=== PATIENT | female | born 1930 | race Asian ===

== ENCOUNTER 2018-04-27 22:33 | Inpatient (IN) | payer OTHER ==
[~2018-04-27] VITALS: Ht 157.5 cm; Wt 49.9 kg
[~2018-04-27 22:33] MED LIST: ASPI-1159 PO; CARV25TA47 PO; CHOL400T15 MT; FURO20TA4 PO; GLIP5TAB12 PO; ISOS40TA17 PO; LISI40TA4 PO; MAGN400C PO; OMEG1CAP17 PO; PRAV20TA57 PO; UBID100C45 PO
[2018-04-27] MEDS ORDERED: MECLIZINE 25MG TABLET PO ONE (23:15)
[2018-04-27] MEDS ORDERED: SODIUM CHLORIDE 0.9% 1000ML BAG (SEPSIS BOLUS) IV ONE (23:15)
[2018-04-28] MEDS ORDERED: CLONIDINE 0.1MG TABLET PO ONE
[2018-04-28 00:43] LABS: CLARITY URINE CLEAR (CLEAR); COLOR URINE YELLOW (YELLOW); KETONES URINE NEGATIVE (NEGATIVE); LEUKOCYTE ESTERASE URINE TRACE (NEGATIVE); NITRITE URINE NEGATIVE (NEGATIVE); OCCULT BLOOD URINE NEGATIVE (NEGATIVE); PH URINE 7.5 (4.5-8.0); PROTEIN URINE NEGATIVE (NEGATIVE); SPECIFIC GRAVITY URINE 1.014 (1.005-1.030); UROBILINOGEN URINE 0.2 E.U./dL (0.2-1.0)
[2018-04-28] MEDS ORDERED: LEVOFLOXACIN 750MG PREMIX 150 ML IV ONE (00:45)
[2018-04-28 00:50] LABS: BASOPHILS % 0.8 % (0.0-2.0); EOSINOPHILS % 1.3 % (0.0-5.0); HEMATOCRIT. 40.6 % (36.0-48.0); HEMOGLOBIN. 13.5 g/dL (12.0-16.0); LYMPHOCYTES % 23.5 % (20.0-50.0); MEAN CORPUSCULAR VOLUME 90.2 fL (81.0-99.0); MEAN PLATELET VOLUME 9.8 fl (7.4-10.4); MONOCYTES % 5.4 % (2.0-8.0); PLATELET 180 x1000/uL (130-400); RED CELL DISTRIBUTION WIDTH 14.1 % (11.6-14.6)
[2018-04-28 00:56] LABS: CHLORIDE 103 mEq/L (98-107)
[2018-04-28 00:57] LABS: PROTHROMBIN TIME 10.2 sec (9.1-11.1)
[2018-04-28] MEDS ORDERED: ONDANSETRON HCL 4MG/2ML INJ IV ONE ×2 (03:30)
[2018-04-28] MEDS ORDERED: ASPIRIN 325MG EC TABLET PO ONE (04:30)
[2018-04-28 08:40] VITALS: BP 176/57
[2018-04-28] MEDS ORDERED: DEXTROSE 50% WATER 50ML SYRINGE IV PRN (10:15)
[2018-04-28] MEDS ORDERED: IPRATROPIUM/ALBUTEROL 0.5-3(2.5)MG/3ML NEB HHN PRN (10:15)
[2018-04-28] MEDS ORDERED: CLONIDINE 0.1MG TABLET PO PRN (10:15)
[2018-04-28] MEDS ORDERED: HYDROCODONE/ACETAMINOPHEN 5/325MG TABLET PO PRN (10:30)
[2018-04-28] MEDS ORDERED: MECLIZINE 25MG TABLET PO PRN (10:30)
[2018-04-28] MEDS ORDERED: LEVOFLOXACIN 250MG TABLET PO SCH (11:00)
[2018-04-28] MEDS ORDERED: INSULIN LISPRO 100 UNITS/ML SUBCUT SCH (12:40)
[2018-04-28 12:54] LABS: HEMATOCRIT 34.8 % (36.0-48.0); HEMOGLOBIN 11.8 g/dL (12.0-16.0); MEAN CORPUSCULAR HEMOGLOBIN 30.1 pg (28.0-32.0); MEAN CORPUSCULAR VOLUME 89.2 fL (81.0-99.0); PLATELET 168 x1000/uL (130-400); RED CELL DISTRIBUTION WIDTH 14.3 % (11.6-14.6)
[2018-04-28] MEDS: ENOXAPARIN 40MG/0.4ML SYR SUBCUT SCH (12:55)
[2018-04-28] MEDS: HYDRALAZINE 20MG/ML VIAL IV PRN (12:56)
[2018-04-28 12:57] LABS: BG BASE EXCESS -0.7 mmol/L (-2.0-2.0); BG CARBOXYHEMOGLOBIN 0.8 % (0.5-1.5); BG DEOXYHEMOGLOBIN 10.8 % (0.0-5.0); BG FRACTION INSPIRED OXYGEN 21; BG HCO3 ACT 24.5 mmol/L (22.0-26.0); BG METHEMOGLOBIN 0.2 % (0.0-1.5); BG OXYGEN SATURATION 89.1 % (92.0-98.5); BG OXYHEMOGLOBIN 88.2 % (94.0-97.0); BG PCO2 42.5 mmHg (35.0-45.0); BG PH 7.378 (7.350-7.450); BG PO2 55.2 mmHg (75.0-100.0); BG SAMPLE SITE RIGHT RADIAL; BG TOTAL HEMOGLOBIN 12.4 g/dL (12.0-18.0); BG VENT MODE ROOM AIR
[2018-04-28] MEDS: BLOOD SUGAR DIAGNOSTIC STRIP TEST SCH ×3 (12:57→21:21)
[2018-04-28] MEDS: INSULIN LISPRO 100 UNITS/ML SUBCUT SCH ×3 (12:57→21:00)
[2018-04-28 13:18] LABS: CHLORIDE 106 mEq/L (98-107)
[2018-04-28 13:25] LABS: LDL CHOLESTEROL 118 mg/dL (5-100)
[2018-04-28 13:26] LABS: HDL CHOLESTEROL 43 mg/dL (40-59)
[2018-04-28 15:51] VITALS: BP 121/36
[2018-04-28 16:00] VITALS: BP_SYST 154; BP_SYST 168; BP_SYST 176; BP_DIAS 44; BP_DIAS 46; BP_DIAS 48
[2018-04-28] MEDS ORDERED: IOHEXOL-350 100 ML BOTTLE ONE (16:43)
[2018-04-28] MEDS: AMLODIPINE 5MG TABLET PO SCH (19:11)
[2018-04-28 20:00] VITALS: BP 157/46
[2018-04-28] MEDS: IPRATROPIUM/ALBUTEROL 0.5-3(2.5)MG/3ML NEB HHN SCH (20:20)
[2018-04-28 20:23] LABS: *AMPHETAMINES SCREEN URINE NEGATIVE (NEGATIVE); *BARBITURATES SCREEN URINE NEGATIVE (NEGATIVE); *BENZODIAZEPINES SCREEN URINE NEGATIVE (NEGATIVE); *COCAINE SCREEN URINE NEGATIVE (NEGATIVE)
[2018-04-28 20:24] LABS: CANNABINOID URINE SCREEN PRESUMTIVE POSITIVE (NEGATIVE); METHADONE URINE SCREEN NEGATIVE (NEGATIVE); OPIATES URINE SCREEN NEGATIVE (NEGATIVE); PHENCYCLIDINE URINE SCREEN NEGATIVE (NEGATIVE)
[2018-04-28] MEDS ORDERED: LEVOFLOXACIN 250MG PREMIX 50 ML IV SCH (23:00)
[2018-04-29] VITALS (8 sets, daily range): BP systolic 141–170; BP diastolic 37–57
[2018-04-29] MEDS: IPRATROPIUM/ALBUTEROL 0.5-3(2.5)MG/3ML NEB HHN SCH ×2 (02:27→12:01)
[2018-04-29] MEDS: INSULIN LISPRO 100 UNITS/ML SUBCUT SCH ×3 (06:27→16:31)
[2018-04-29] MEDS: BLOOD SUGAR DIAGNOSTIC STRIP TEST SCH ×3 (06:27→16:31)
[2018-04-29 07:39] LABS: BASOPHILS % 0.6 % (0.0-2.0); HEMOGLOBIN. 11.6 g/dL (12.0-16.0); LYMPHOCYTES % 29.3 % (20.0-50.0); MEAN CORPUSCULAR HEMOGLOBIN 30.7 pg (28.0-32.0); MEAN CORPUSCULAR VOLUME 89.7 fL (81.0-99.0); MEAN PLATELET VOLUME 10.2 fl (7.4-10.4); MONOCYTES % 10.3 % (2.0-8.0); NEUTROPHILS % 58.8 % (40.0-76.0); PLATELET 158 x1000/uL (130-400); RED BLOOD CELL COUNT 3.79 mill/uL (4.2-5.4)
[2018-04-29 07:48] LABS: CHLORIDE 108 mEq/L (98-107)
[2018-04-29] MEDS: AMLODIPINE 5MG TABLET PO SCH (09:50)
[2018-04-29 13:00] LABS: BG BASE EXCESS 3.7 mmol/L (-2.0-2.0); BG CARBOXYHEMOGLOBIN 0.9 % (0.5-1.5); BG DEOXYHEMOGLOBIN 4.3 % (0.0-5.0); BG FRACTION INSPIRED OXYGEN 21; BG HCO3 ACT 28.5 mmol/L (22.0-26.0); BG METHEMOGLOBIN 0.2 % (0.0-1.5); BG OXYGEN SATURATION 95.7 % (92.0-98.5); BG OXYHEMOGLOBIN 94.6 % (94.0-97.0); BG PCO2 43.7 mmHg (35.0-45.0); BG PH 7.432 (7.350-7.450); BG PO2 78.5 mmHg (75.0-100.0); BG SAMPLE SITE RIGHT RADIAL; BG TOTAL HEMOGLOBIN 13.1 g/dL (12.0-18.0); BG VENT MODE ROOM AIR
[2018-04-29] MEDS: ENOXAPARIN 40MG/0.4ML SYR SUBCUT SCH (13:11)
[2018-04-29] MEDS: HYDRALAZINE 20MG/ML VIAL IV PRN (15:36)
[2018-04-29] MEDS ORDERED: HYDRALAZINE HCL 25MG TABLET PO NR (16:15)
== END 2018-04-29 19:40 | disposition home or self-care (01) | DRG 195 ==
LOC: ER 22:33 → 8WST 04-28 04:29 → EDBEDREQTM 04-28 04:33 → EDBEDREQ 04-28 04:33 → ENRESERV 04-28 07:21
PROVIDERS: ADMIT Internal Medicine; ATTEND Internal Medicine
DX: J18.1 Lobar pneumonia, unspecified organism (principal); I50.9 Heart failure, unspecified; I11.0 Hypertensive heart disease with heart failure; I48.91 Unspecified atrial fibrillation; E78.5 Hyperlipidemia, unspecified; I27.20 Pulmonary hypertension, unspecified; G90.8 Other disorders of autonomic nervous system; I71.2 Thoracic aortic aneurysm, without rupture; E11.65 Type 2 diabetes mellitus with hyperglycemia; R00.1 Bradycardia, unspecified; D64.9 Anemia, unspecified; R09.02 Hypoxemia; I25.10 Atherosclerotic heart disease of native coronary artery without angina pectoris; J32.0 Chronic maxillary sinusitis; R79.1 Abnormal coagulation profile; Z90.49 Acquired absence of other specified parts of digestive tract; Z88.2 Allergy status to sulfonamides; Z79.899 Other long term (current) drug therapy; Z79.82 Long term (current) use of aspirin; Z85.22 Personal history of malignant neoplasm of nasal cavities, middle ear, and accessory sinuses; Z85.819 Personal history of malignant neoplasm of unspecified site of lip, oral cavity, and pharynx
CPT/HCPCS: 36415; 36600; 71045; 71275; 76700; 80048; 80061; 80305; 82375; 82805; 82962; 83036; 83605; 83735; 83880; 84145; 84443; 84484; 85027; 85379; 87804; 93005; 93306; 93880; 93970; 94640; 96365; 96375; 97162; 99285; J0360; J1650; J1815; J1956; J2405; J7030; J7620; J8597; Q9967